=== PATIENT | female | born 1955 | race Caucasian/White ===

== ENCOUNTER 2016-10-02 14:23 | Emergency (ER) | payer OTHER ==
--- NOTE | 2016-10-02 15:19 | EDPHY ---
H & P Time Seen by Provider: 10/02/16 15:14 HPI/ROS: Chief complaint. Tingling left hand, dizzy HPI. Patient is a 61-year-old female with previous left thalamic stroke in 2008 presents with altered sensation. She says she has had left hand tingling for several weeks. The tingling appears to be worse today. She felt that her left pinky finger was clumsy otherwise does not have weakness. No leg symptoms. No vision change. Headache put last 2 days. No chest pain, abdominal pain, shortness of breath, fever. Somewhat off balance with standing. She also says she has some tingling in her right pinky finger today. ROS Constitutional. no fever/chills, no weakness Eyes. no problems with vision ENT. no sore throat, no nasal drainage Cardiovascular. no chest pain Respiratory. no shortness of breath, no cough Abdominal. no abdominal pain, no nausea/vomiting, no diarrhea . no problems urinating MS. no calf pain/swelling, no neck/back pain, no joint pain Skin. no rash Lymph. no swollen glands Neuro. Headache, off balance, tingling Past Medical/Surgical History: Past medical history left thalamic stroke 2008, dyslipidemia, depression, atrial septal defect, migraines Social History: , nonsmoker, no alcohol Smoking Status: Never smoked Physical Exam: General Appearance: Alert well-developed female mild distress vital signs are stable Eyes: Pupils equal and round no pallor or injection. ENT, no oral pharyngeal injection. Mucous membranes are moist Respiratory: There are no retractions, lungs are clear to auscultation. Cardiovascular: Regular rate and rhythm. Gastrointestinal: Abdomen is soft and nontender, no masses, bowel sounds normal. Neurological: Awake and alert, sensory and motor exams grossly normal. Speech is normal. Cranial nerves are normal. Equal sensation to both sides face. There is no pronator drift. Draihi-yv-osrk is normal bilaterally. Heel-to- garrett is normal bilaterally. Patient feels altered sensation to the left hand and forearm and somewhat to the right pinky finger Skin: Warm and dry, no rashes. Musculoskeletal: Neck is supple nontender. Extremities symmetrical, full range of motion. Psychiatric: Patient is oriented X 3, there is no agitation. Constitutional: Initial Vital Signs Temperature (C) 36.5 C 10/02/16 14:27 Heart Rate 75 10/02/16 14:27 Respiratory Rate 16 10/02/16 14:27 Blood Pressure 133/88 H 10/02/16 14:27 O2 Sat (%) 99 10/02/16 14:27 O2 Delivery Mode Room Air Allergies/Adverse Reactions: No Known Allergies Allergy (Verified 11/18/13 17:39) Home Medications: Medication Instructions Recorded SIMVASTATIN 10 mg PO HS 09/04/15 Zolpidem Tartrate [Ambien 5MG (*)] 2.5 mg PO HS PRN 09/04/15 oxyCODONE/APAP 5/325 [Percocet 1 - 2 tab PO Q4 PRN #40 tab 09/05/15 5/325 (*)] traMADol 10/02/16 Medical Decision Making - Diagnostics EKG Interpretation: EKG interpreted by Imaging Results: Imaging Impressions Brain MRI 10/02/16 15:37 Impression: Prior left thalamic CVA, small in size. No features of acute ischemia. Results called to Dr. Braxton Jaffe at the time of the interpretation.. MR brain with and without contrast reviewed by me and discussed with Dr. Sanders is negative for acute findings. There is a subtle hypodensity in the left thalamus that apparently represents old CVA Procedures: IV normal saline, monitor ED Course/Re-evaluation: consult and discussion with Dr. Cuenca, neurology, who recommends making sure that the patient is on aspirin daily. Otherwise he feels no further workup at this point. He will see the patient in the office 5:00 p.m. I re-evaluated the patient. She stable. No progression of neurologic findings. She and I discussed MRI, EKG, laboratory evaluation. We discussed treatment plan including aspirin and importance of follow-up and further evaluation. She expresses understanding and agreement Differential Diagnosis: I considered CVA, TIA, cervical radiculopathy. - Data Points Laboratory Results: Laboratory Results 10/02/16 14:45 10/02/16 14:45 10/02/16 10/02/16 10/02/16 14:45 14:45 14:45 WBC 6.89 10^3/uL 10^3/uL (3.80-9.50) RBC 4.74 10^6/uL 10^6/uL (4.18-5.33) Hgb 14.1 g/dL g/dL (12.6-16.3) Hct 41.1 % % (38.0-47.0) MCV 86.7 fL fL (81.5-99.8) MCH 29.7 pg pg (27.9-34.1) MCHC 34.3 g/dL g/dL (32.4-36.7) RDW 12.8 % % (11.5-15.2) Plt Count 282 10^3/uL 10^3/uL (150-400) MPV 8.5 fL L fL (8.7-11.7) Neut % (Auto) 63.4 % % (39.3-74.2) Lymph % (Auto) 27.4 % % (15.0-45.0) Rains % (Auto) 7.8 % % (4.5-13.0) Eos % (Auto) 0.7 % % (0.6-7.6) Baso % (Auto) 0.4 % % (0.3-1.7) Nucleat RBC Rel Count 0.0 % % (0.0-0.2) Absolute Neuts (auto) 4.36 10^3/uL 10^3/uL (1.70-6.50) Absolute Lymphs (auto) 1.89 10^3/uL 10^3/uL (1.00-3.00) Absolute Monos (auto) 0.54 10^3/uL 10^3/uL (0.30-0.80) Absolute Eos (auto) 0.05 10^3/uL 10^3/uL (0.03-0.40) Absolute Basos (auto) 0.03 10^3/uL 10^3/uL (0.02-0.10) Absolute Nucleated RBC 0.00 10^3/uL 10^3/uL (0-0.01) Immature Gran % 0.3 % % (0.0-1.1) Immature Gran # 0.02 10^3/uL 10^3/uL (0.00-0.10) PT 13.2 SEC SEC (12.0-15.0) INR 1.01 (0.83-1.16) Sodium 141 mEq/L mEq/L (134-144) Potassium 3.9 mEq/L mEq/L (3.5-5.2) Chloride 105 mEq/L mEq/L (97-110) Carbon Dioxide 26 mEq/l mEq/l (22-31) Anion Gap 10 mEq/L mEq/L (8-16) BUN 14 mg/dL mg/dL (7-23) Creatinine 0.8 mg/dL mg/dL (0.6-1.0) Estimated GFR > 60 Glucose 76 mg/dL mg/dL (70-100) Calcium 10.3 mg/dL mg/dL (8.5-10.4) Troponin I < 0.012 ng/mL ng/mL (0-0.034) Medications Given: Discontinued Medications Sodium Chloride (Ns) 1,000 mls @ 0 mls/hr IV ONCE ONE PRN Reason: Wide Open Stop: 10/02/16 15:37 Last Admin: 10/02/16 16:49 Dose: 1,000 mls Departure - Departure Disposition: Home, Routine, Self-Care Clinical Impression: Paresthesia Condition: Good Instructions: Paresthesia (ED) Additional Instructions: Aspirin 325 mg each day for circulation. Return for worsening symptoms especially weakness or progression of the numbness and tingling. I would like for you to follow up with Dr. Cuenca, neurology. Please call the office tomorrow morning to arrange follow-up and further evaluation Referrals: Alexus Yang MD [Primary Care Provider] - As per Instructions David Cuenca MD [Medical Doctor] - 2-3 days, call for appt.
[2016-10-02] MEDS ORDERED: NS 1,000 ML IV ONE (15:36)
[2016-10-02 15:44] LABS: % IMMATURE GRANULYOCYTES 0.3 % (0.0-1.1); ABSOLUTE IMMATURE GRANULOCYTES 0.02 10^3/uL (0.00-0.10); ADD DIFF? NO; ADD MORPH? NO; ADD SCAN? NO; ATYPICAL LYMPHOCYTE FLAG 40 (0-99); FRAGMENT RBC FLAG 0 (0-99); HEMATOCRIT 41.1 % (38.0-47.0); HEMOGLOBIN 14.1 g/dL (12.6-16.3); LEFT SHIFT FLG 0 (0-99); LIPEMIA HEMOLYSIS FLAG 90 (0-99); MEAN CELL HEMOGLOBIN 29.7 pg (27.9-34.1); MEAN CELL HEMOGLOBIN CONCENTR. 34.3 g/dL (32.4-36.7); MEAN CELL VOLUME 86.7 fL (81.5-99.8); MEAN PLATELET VOLUME 8.5 fL (8.7-11.7); PLATELET CLUMPS FLAG 0 (0-99); PLATELET COUNT 282 10^3/uL (150-400); RED BLOOD CELL COUNT 4.74 10^6/uL (4.18-5.33); RED CELL DISTRIBUTION WIDTH 12.8 % (11.5-15.2)
[2016-10-02 15:48] LABS: ANION GAP 10 mEq/L (8-16); CALCIUM 10.3 mg/dL (8.5-10.4); CARBON DIOXIDE 26 mEq/l (22-31); CHLORIDE 105 mEq/L (97-110); CREATININE 0.8 mg/dL (0.6-1.0); GLOMERULAR FILTRATION RATE > 60; GLUCOSE 76 mg/dL (70-100); POTASSIUM 3.9 mEq/L (3.5-5.2); SODIUM 141 mEq/L (134-144)
[2016-10-02 15:50] LABS: INR 1.01 (0.83-1.16); PROTIME(PATIENT) 13.2 SEC (12.0-15.0)
[2016-10-02] MEDS ORDERED: GADOBUTROL 10 ML VIAL IVP ONE (15:54)
[2016-10-02 15:59] LABS: TROPONIN I < 0.012 ng/mL (0-0.034)
--- NOTE | 2016-10-02 16:45 | CPEKG ---
Heart Rate: 68 RR Interval: 882 P-R Interval: 164 QRSD Interval: 78 QT Interval: 412 QTC Interval: 439 P [place]: 7 QRS [place]: 28 T Wave [place]: 37 EKG Severity - ABNORMAL ECG - EKG Impression: SINUS RHYTHM EKG Impression: CONSIDER LEFT VENTRICULAR HYPERTROPHY Electronically Signed By: Teresa John 02-Oct-2016 22:04:02
[2016-10-02 16:50] VITALS: BP 125/86; PULSE 70; RESP 18; O2SAT 94
[2016-10-02 17:23] VITALS: TEMP 97.9
== END 2016-10-02 17:23 | disposition home or self-care (01) ==
DX: R20.2 Paresthesia of skin (principal)
CPT/HCPCS: A9585

== ENCOUNTER → 2016-11-20 | Outpatient (CLI) | payer OTHER | LOC: FIMAGING 15:55 | PROVIDERS: ATTEND Internal Medicine | DX: Z12.31 Encounter for screening mammogram for malignant neoplasm of breast (principal) | CPT/HCPCS: G0202 ==

== ENCOUNTER → 2017-12-03 | Outpatient (CLI) | payer OTHER | LOC: FIMAGING 09:59 | PROVIDERS: ATTEND Internal Medicine | DX: Z12.31 Encounter for screening mammogram for malignant neoplasm of breast (principal); Z80.3 Family history of malignant neoplasm of breast ==

== ENCOUNTER 2018-03-12 09:27 | Emergency (ER) | payer OTHER ==
[2018-03-12] MEDS ORDERED: KETOROLAC 15 MG/1 ML SDV IVP ONE (10:22)
--- NOTE | 2018-03-12 10:24 | EDPHY ---
H & P Stated Complaint: L LOWER BACK PAIN FEELS IT IS R/T TO L[employer]ING [employer] AT WORK THIS WE Time Seen by Provider: 03/12/18 10:15 HPI/ROS: CHIEF COMPLAINT: Left gluteal pain HISTORY OF PRESENT ILLNESS: Patient is a 63-year-old female who comes to the emergency department complaining of pain in her left gluteus muscle. No low back pain. No radiation. No weakness or numbness. No bowel or bladder abnormalities. No dysuria. She states that she 1st noticed this pain after lifting heavy plantar is a work but that it seems to be getting worse over the last 3 days. She has been taking ibuprofen with minimal improvement. She has not taken any since yesterday. It hurts her to sit and feels better when she stands or moves. Severity: Moderate Modifying factors: None REVIEW OF SYSTEMS: Constitutional: denies: chills, fever, recent illness, recent injury EENTM: denies: blurred vision, double vision, nose congestion Respiratory: denies: cough, shortness of breath Cardiac: denies: chest pain, irregular heart rate, lightheadedness, palpitations Gastrointestinal/Abdominal: denies: abdominal pain, diarrhea, nausea, vomiting, blood streaked stools Genitourinary: denies: dysuria, frequency, hematuria, pain Musculoskeletal: See HPI Skin: denies: lesions, rash, jaundice, bruising Neurological: denies: headache, numbness, paresthesia, tingling, dizziness, weakness Hematologic/Lymphatic: denies: blood clots, easy bleeding, easy bruising Immunologic/allergic: denies: HIV/AIDS, transplant 10 systems reviewed and negative except as noted EXAM: GENERAL: Well-appearing, well-nourished and in no acute distress. HEAD: Atraumatic, normocephalic. EYES: Pupils equal round and reactive to light, extraocular movements intact, sclera anicteric, conjunctiva are normal. ENT: TMs normal, nares patent, oropharynx clear without exudates. Moist mucous membranes. NECK: Normal range of motion, supple without lymphadenopathy or JVD. LUNGS: Breath sounds clear to auscultation bilaterally and equal. No wheezes rales or rhonchi. HEART: Regular rate and rhythm without murmurs, rubs or gallops. ABDOMEN: Soft, nontender, normoactive bowel sounds. No guarding, no rebound. No masses appreciated. BACK: No CVA tenderness, no spinal tenderness, step-offs or deformities EXTREMITIES: Left gluteal pain, normal range of motion. No rash. No tenderness to palpation. NEUROLOGICAL: Cranial nerves II through XII grossly intact. Normal speech, normal gait. 5/5 strength, normal movement in all extremities, normal sensation , normal reflexes PSYCH: Normal mood, normal affect. SKIN: Warm, dry, normal turgor, no visible rashes or lesions. Source: Patient Exam Limitations: No limitations - Personal History Current Tetanus Diphtheria and Acellular Pertussis (TDAP): Yes Tetanus Vaccine Date: 2010 - Medical/Surgical History Hx Asthma: No Hx Chronic Respiratory Disease: No Hx Diabetes: No Hx Cardiac Disease: No Hx Renal Disease: No Hx Cirrhosis: No Hx Alcoholism: No Hx HIV/AIDS: No Hx Splenectomy or Spleen Trauma: No Other PMH: stroke 2008, hyperlipidemia, depression, L humerus fx 1992, breast reduction 2007 - Family History Significant Family History: No pertinent family hx - Social History Smoking Status: Never smoked Alcohol Use: Sober Drug Use: None Constitutional: Initial Vital Signs Temperature (C) 36.5 C 03/12/18 09:35 Heart Rate 59 L 03/12/18 09:35 Respiratory Rate 17 03/12/18 09:35 Blood Pressure 128/74 H 03/12/18 09:35 O2 Sat (%) 99 03/12/18 09:35 O2 Delivery Mode Room Air Allergies/Adverse Reactions: No Known Allergies Allergy (Verified 03/12/18 09:34) Home Medications: Medication Instructions Recorded Zolpidem Tartrate [Ambien 5MG (*)] 2.5 mg PO HS PRN 09/04/15 Medical Decision Making - Diagnostics Imaging Results: Imaging Impressions Pelvis X-Ray 03/12/18 10:22 Impression: Nothing acute on this single view pelvis. Abdomen/Pelvis CT 03/12/18 10:53 Impression: 1. No evidence of urinary calculi. 2. Hypodense lesions in the pancreatic body measuring up to 9.4 mm and are incompletely characterized. Recommend follow-up imaging in one year with dedicated pancreatic protocol CT or MRI. 3. Left adnexal cyst measuring 2.1 cm. Recommend dedicated ultrasound. 4. There is a 0.4 cm left lower lobe nodule. In the absence of comparison imaging, and if patient is at increased risk, would consider 12 month follow-up CT. Findings and recommendations discussed with SWATI POSADAS at 1131 hour, 2017. Imaging: Discussed imaging studies w/ call center specialist Radiologist ED Course/Re-evaluation: The patient's symptoms appear musculoskeletal. She does not have an toxic exam and this certainly not showing any systemic signs of infection. No significant trauma. We will obtain an x-ray of her pelvis and check her urine and treat with anti-inflammatories. 10:50 a.m. The patient's urinalysis is positive for blood. I will order CT scan to evaluate for kidney stone. 11:35 a.m. we had a long discussion about the lab work and imaging. I suspect that this is musculoskeletal. We discussed muscle relaxants and rest and early mobility. We discussed indications for returning to the ER. She is happy with this plan and declines further workup or testing at this time. She does feel somewhat better after Toradol. She was able to ambulate without difficulty out the department. Differential Diagnosis: Partial list of the Differential diagnosis considered include but were not limited to; sacroiliitis, muscle strain and although unlikely based on the history and physical exam, I also considered radiculopathy, spinal cord injury, fracture, deep space infection, kidney stone, urinary tract infection. I discussed these differential diagnoses and the plan with the patient as well as the usual and expected course. The patient understands that the diagnosis is provisional and that in medicine we are not always correct and that further workup is often warranted. Usual and customary warnings were given. All of the patient's questions were answered. The patient was instructed to return to the emergency department should the symptoms at all worsen or return, otherwise to followup with the physician as we discussed. - Data Points Laboratory Results: Laboratory Results 03/12/18 10:13 03/12/18 10:13 03/12/18 03/12/18 03/12/18 10:13 10:13 10:05 WBC 6.94 10^3/uL 10^3/uL (3.80-9.50) RBC 5.30 10^6/uL 10^6/uL (4.18-5.33) Hgb 15.5 g/dL g/dL (12.6-16.3) Hct 44.8 % % (38.0-47.0) MCV 84.5 fL fL (81.5-99.8) MCH 29.2 pg pg (27.9-34.1) MCHC 34.6 g/dL g/dL (32.4-36.7) RDW 12.5 % % (11.5-15.2) Plt Count 268 10^3/uL 10^3/uL (150-400) MPV 8.6 fL L fL (8.7-11.7) Neut % (Auto) 68.3 % % (39.3-74.2) Lymph % (Auto) 23.6 % % (15.0-45.0) Levy % (Auto) 6.5 % % (4.5-13.0) Eos % (Auto) 0.9 % % (0.6-7.6) Baso % (Auto) 0.4 % % (0.3-1.7) Nucleat RBC Rel Count 0.0 % % (0.0-0.2) Absolute Neuts (auto) 4.74 10^3/uL 10^3/uL (1.70-6.50) Absolute Lymphs (auto) 1.64 10^3/uL 10^3/uL (1.00-3.00) Absolute Monos (auto) 0.45 10^3/uL 10^3/uL (0.30-0.80) Absolute Eos (auto) 0.06 10^3/uL 10^3/uL (0.03-0.40) Absolute Basos (auto) 0.03 10^3/uL 10^3/uL (0.02-0.10) Absolute Nucleated RBC 0.00 10^3/uL 10^3/uL (0-0.01) Immature Gran % 0.3 % % (0.0-1.1) Immature Gran # 0.02 10^3/uL 10^3/uL (0.00-0.10) Sodium 140 mEq/L mEq/L (135-145) Potassium 4.1 mEq/L mEq/L (3.3-5.0) Chloride 106 mEq/L mEq/L (97-110) Carbon Dioxide 23 mEq/l mEq/l (22-31) Anion Gap 11 mEq/L mEq/L (8-16) BUN 11 mg/dL mg/dL (7-23) Creatinine 0.7 mg/dL mg/dL (0.6-1.0) Estimated GFR > 60 Glucose 90 mg/dL mg/dL (70-100) Calcium 10.4 mg/dL mg/dL (8.5-10.4) Total Bilirubin 1.2 mg/dL mg/dL (0.1-1.4) Conjugated Bilirubin 0.2 mg/dL mg/dL (0.0-0.5) Unconjugated Bilirubin 1.0 mg/dL mg/dL (0.0-1.1) AST 27 IU/L IU/L (14-46) ALT 31 IU/L IU/L (9-52) Alkaline Phosphatase 89 IU/L IU/L (38-126) Total Protein 7.4 g/dL g/dL (6.3-8.2) Albumin 4.7 g/dL g/dL (3.5-5.0) Lipase 172 IU/L IU/L (23-300) Urine Color COLORLESS Urine Appearance CLEAR Urine pH 8.0 H (5.0-7.5) Ur Specific [place] 1.001 L (1.002-1.030) Urine Protein NEGATIVE (NEGATIVE) Urine Ketones NEGATIVE (NEGATIVE) Urine Blood 1+ H (NEGATIVE) Urine Nitrate NEGATIVE (NEGATIVE) Urine Bilirubin NEGATIVE (NEGATIVE) Urine Urobilinogen NEGATIVE EU EU (0.2-1.0) Ur Leukocyte Esterase NEGATIVE (NEGATIVE) Urine RBC 1-3 /hpf /hpf (0-3) Urine WBC 0-1 /hpf /hpf (0-3) Ur Epithelial Cells TRACE /lpf /lpf (NONE-1+) Urine Mucus TRACE /lpf /lpf (NONE-1+) Urine Glucose NEGATIVE (NEGATIVE) Medications Given: Discontinued Medications Diazepam (Valium 5 Mg Prepack#4) 1 btl TAKEHOME EDNOW ONE Stop: 03/12/18 11:39 Last Admin: 03/12/18 11:49 Dose: 1 btl Ketorolac Tromethamine (Toradol) 15 mg IVP EDNOW ONE Stop: 03/12/18 10:23 Last Admin: 03/12/18 10:31 Dose: 15 mg Departure - Departure Disposition: Home, Routine, Self-Care Clinical Impression: Muscle strain of left gluteal region Qualifiers: Encounter type: initial encounter Qualified Code(s): S76.012A - Strain of muscle, fascia and tendon of left hip, initial encounter Condition: Fair Instructions: Diazepam (By mouth), Musculoskeletal Pain (ED) Referrals: Alexus Yang MD [Primary Care Provider] - As per Instructions
[2018-03-12 11:00] LABS: PLATELET COUNT 268 10^3/uL (150-400)
[2018-03-12] MEDS ORDERED: DIAZEPAM 5 MG PREPACK#4 BTL TAKEHOME ONE (11:38)
[2018-03-12 11:40] VITALS: BP 121/80
== END 2018-03-12 12:20 | disposition home or self-care (01) ==
DX: S76.012A Strain of muscle, fascia and tendon of left hip, initial encounter (principal); X50.0XXA Overexertion from strenuous movement or load, initial encounter; Y93.89 Activity, other specified; Y99.0 Civilian activity done for income or pay
CPT/HCPCS: 96374; J1885